=== PATIENT | male | born 1960 | race Caucasian/White ===

== ENCOUNTER 2021-07-30 10:27 | Emergency (ER) | payer SELFPAY ==
[~2021-07-30] VITALS: Ht 182.9 cm; Wt 92.7 kg
[~2021-07-30 10:27] MED LIST: CRESTOR20 MG PO; FLAGYL500 MG PO; FLOMAX 0.40.4 MG/CAP PO; FORT1000TA PO; LEVAQUIN 750MG750 M1 PO; LOPRESSOR 550 MG/TAB PO; NITROSTAT0.4 MG/TAB SL; NORCO 325 MG-51 TAB PO; NOVOLOG FLEX100 U/ML SC; PERCOCET 325 MG1 TA2 PO; VICTOZA6 MG/ML SC; ZOFRAN ODT4 MG PO
[2021-07-30 11:04] VITALS: TEMP 98
[2021-07-30] MEDS ORDERED: CEPHALEXIN500 M1 PO (14:58)
[2021-07-30] MEDS ORDERED: PERCOCET 325 MG1 TA2 PO (15:10)
[2021-07-30 15:18] VITALS: BP 130/74; PULSE 57
== END 2021-07-30 15:29 | disposition home or self-care (01) ==
LOC: COL.ER 10:27
DX: S67.32XA Crushing injury of left wrist, initial encounter (principal); S57.82XA Crushing injury of left forearm, initial encounter; I10 Essential (primary) hypertension; E11.9 Type 2 diabetes mellitus without complications; I48.91 Unspecified atrial fibrillation; I25.10 Atherosclerotic heart disease of native coronary artery without angina pectoris; Z79.4 Long term (current) use of insulin; Z79.84 Long term (current) use of oral hypoglycemic drugs; Z79.899 Other long term (current) drug therapy; W20.8XXA Other cause of strike by thrown, projected or falling object, initial encounter; Y99.0 Civilian activity done for income or pay
CPT/HCPCS: J1170; J2270; J2405

== ENCOUNTER → 2022-04-29 | Outpatient (CLI) | payer OTHER ==
[~2022-04-29] MED LIST changes: +CEPHALEXIN500 M1 PO; +FLEXERIL 1010 MG/TAB PO
== END ==
LOC: COL.RAD 09:57
DX: N28.89 Other specified disorders of kidney and ureter (principal); K42.9 Umbilical hernia without obstruction or gangrene
CPT/HCPCS: Q9967

== ENCOUNTER → 2023-07-26 | Outpatient (CLI) | payer OTHER ==
[~2023-07-26] MED LIST changes: +ASPIRIN 32325 MG/TAB PO
== END ==
LOC: COL.RAD 13:08
DX: R91.1 Solitary pulmonary nodule (principal); C64.1 Malignant neoplasm of right kidney, except renal pelvis
CPT/HCPCS: Q9967